=== PATIENT | female | born 1955 | race Hispanic/Latino ===

== ENCOUNTER 2020-08-17 11:25 | Inpatient (IN) | payer MEDICARE ==
[~2020-08-17] VITALS: Ht 160 cm; Wt 79.9 kg
[2020-08-17] VITALS (8 sets, daily range): BP systolic 126–143; BP diastolic 58–78
[2020-08-17] MEDS ORDERED: SODIUM CHLORIDE 0.9% 250ML 250 ML IV ONE (12:00)
[2020-08-17] MEDS ORDERED: FUROSEMIDE INJ 10 MG/ML 2 ML VIAL IV PRN (12:00)
[2020-08-17 12:05] LABS: BASOPHILS # (AUTO) 0.1 (0.0-0.1); BASOPHILS % 0.5 % (0.0-1.0); EOSINOPHILS # (AUTO) 0.3 (0.0-0.4); EOSINOPHILS % 3.6 % (0.0-6.0); LYMPHOCYTES # (AUTO) 1.3 (1.0-3.2); LYMPHOCYTES % 14.1 % (18.0-39.1); MEAN CORPUSCULAR HGB CONC 25.2 g/dL (31-35); MEAN CORPUSCULAR VOLUME 63.5 fL (81-99); MONOCYTES # (AUTO) 0.9 (0.2-0.8); MONOCYTES % 9.6 % (4.4-11.3); NEUTROPHILS # (AUTO) 6.8 (2.1-6.9); NEUTROPHILS % 71.8 % (38.7-80.0); PLATELET COUNT 229 x10e3/uL (140-360); RED BLOOD COUNT 3.56 x10e6/uL (3.6-5.1); RED CELL DISTRIBUTION WIDTH 21.2 % (11.7-14.4)
[2020-08-17 12:07] LABS: HEMATOCRIT 22.6 % (34.2-44.1); HEMOGLOBIN 5.7 g/dL (12.0-16.0)
[2020-08-17 12:16] LABS: INR 1.04; PARTIAL THROMBOPLASTIN TIME 26.4 seconds (23.8-35.5); PROTHROMBIN TIME 14.3 seconds (11.9-14.5)
[2020-08-17 12:26] LABS: ALANINE AMINOTRANSFERASE 6 IU/L (0-55); ALBUMIN 3.2 g/dL (3.5-5.0); ALBUMIN/GLOBULIN RATIO 0.7 (0.8-2.0); ALKALINE PHOSPHATASE 134 IU/L (40-150); ANION GAP 10.2 mmol/L (8-16); BLOOD UREA NITROGEN 10 mg/dL (7-26); BUN/CREATININE RATIO 15 (6-25); CALCIUM 8.1 mg/dL (8.4-10.2); CARBON DIOXIDE 25 mmol/L (22-29); CHLORIDE 107 mmol/L (98-107); CREATINE KINASE 53 IU/L (29-168); CREATININE, SERUM 0.68 mg/dL (0.57-1.11); EST GLOMERULAR FILTRATION RATE > 60 ML/MIN (60-); GLUCOSE 100 mg/dL (74-118); POTASSIUM 4.2 mmol/L (3.5-5.1); SODIUM 138 mmol/L (136-145)
[2020-08-17 14:24] LABS: % IRON SATURATION 2 % (15-50); IRON 11 ug/dL (50-170); TOTAL IRON BINDING CAPACITY 494 ug/dL (261-478); TRANSFERRIN 353 mg/dL (180-382)
[2020-08-17] MEDS: SODIUM CHLORIDE 0.9% 1000ML 1,000 ML IV SCH (17:57)
[2020-08-17] MEDS ORDERED: LEXAPRO10 MG PO (18:22)
[2020-08-17] MEDS ORDERED: SYNTHROID100 MCG PO (18:22)
[2020-08-17] MEDS ORDERED: CRESTOR10 MG PO (18:22)
[2020-08-17] MEDS ORDERED: AMOXICILLIN500 MG PO (18:22)
[2020-08-17] MEDS ORDERED: PROTONIX20 MG PO (18:22)
[2020-08-17] MEDS: AMOXICILLIN 250 MG CAP PO SCH (23:15)
[2020-08-18] VITALS (10 sets, daily range): BP systolic 120–149; BP diastolic 51–94
[2020-08-18] MEDS: SODIUM CHLORIDE 0.9% 1000ML 1,000 ML IV SCH ×2 (03:00→16:33)
[2020-08-18] MEDS: LEVOTHYROXINE SODIUM 100 MCG TAB PO SCH (04:55)
[2020-08-18] MEDS: AMOXICILLIN 250 MG CAP PO SCH ×3 (04:55→21:24)
[2020-08-18 06:24] LABS: ALBUMIN/GLOBULIN RATIO 0.7 (0.8-2.0); ALKALINE PHOSPHATASE 123 IU/L (40-150); ANION GAP 10.9 mmol/L (8-16); BLOOD UREA NITROGEN 9 mg/dL (7-26); BUN/CREATININE RATIO 14 (6-25); CALCIUM 7.9 mg/dL (8.4-10.2); CARBON DIOXIDE 22 mmol/L (22-29); CHLORIDE 109 mmol/L (98-107); CREATININE, SERUM 0.63 mg/dL (0.57-1.11); EST GLOMERULAR FILTRATION RATE > 60 ML/MIN (60-); GLUCOSE 86 mg/dL (74-118); POTASSIUM 3.9 mmol/L (3.5-5.1); SODIUM 138 mmol/L (136-145)
[2020-08-18 06:25] LABS: ALANINE AMINOTRANSFERASE < 6 IU/L (0-55)
[2020-08-18 06:50] LABS: BASOPHILS # (AUTO) 0.1 (0.0-0.1); BASOPHILS % 0.6 % (0.0-1.0); EOSINOPHILS # (AUTO) 0.4 (0.0-0.4); EOSINOPHILS % 4.5 % (0.0-6.0); HEMATOCRIT 27.5 % (34.2-44.1); HEMOGLOBIN 7.5 g/dL (12.0-16.0); LYMPHOCYTES % 13.1 % (18.0-39.1); MEAN CORPUSCULAR HEMOGLOBIN 18.6 pg (28-32); MEAN CORPUSCULAR HGB CONC 27.3 g/dL (31-35); MEAN CORPUSCULAR VOLUME 68.2 fL (81-99); MONOCYTES # (AUTO) 0.6 (0.2-0.8); MONOCYTES % 7.9 % (4.4-11.3); NEUTROPHILS # (AUTO) 5.8 (2.1-6.9); NEUTROPHILS % 73.4 % (38.7-80.0); PLATELET COUNT 191 x10e3/uL (140-360); RED BLOOD COUNT 4.03 x10e6/uL (3.6-5.1); RED CELL DISTRIBUTION WIDTH 23.7 % (11.7-14.4)
[2020-08-18] MEDS: PANTOPRAZOLE SOD 40 MG TABEC PO SCH (07:26)
[2020-08-18 11:34] LABS: HYPOCHROMASIA MODERATE
[2020-08-18 11:35] LABS: ELLIPTOCYTE, RBC SLIGHT; MICROCYTOSIS SLIGHT; PLATELET ESTIMATE ADEQUATE; RBC MORPHOLOGY COMMENT ABNORMAL
[2020-08-18 11:40] LABS: POLYCHROMASIA FEW; SCHISTOCYTES RARE
[2020-08-18 11:43] LABS: OVALOCYTES FEW; PLATELET MORPHOLOGY COMMENT FEW LARGE
[2020-08-18 11:46] LABS: BASOPHILS # (AUTO) 0.1 (0.0-0.1); BASOPHILS % 0.7 % (0.0-1.0); EOSINOPHILS # (AUTO) 0.3 (0.0-0.4); EOSINOPHILS % 4.3 % (0.0-6.0); HEMOGLOBIN 7.9 g/dL (12.0-16.0); LYMPHOCYTES # (AUTO) 1.1 (1.0-3.2); LYMPHOCYTES % 14.2 % (18.0-39.1); MEAN CORPUSCULAR HEMOGLOBIN 18.4 pg (28-32); MEAN CORPUSCULAR HGB CONC 27.2 g/dL (31-35); MEAN CORPUSCULAR VOLUME 67.6 fL (81-99); MONOCYTES # (AUTO) 0.6 (0.2-0.8); MONOCYTES % 7.2 % (4.4-11.3); NEUTROPHILS # (AUTO) 5.6 (2.1-6.9); NEUTROPHILS % 73.1 % (38.7-80.0); PLATELET COUNT 199 x10e3/uL (140-360); RED BLOOD COUNT 4.29 x10e6/uL (3.6-5.1); RED CELL DISTRIBUTION WIDTH 23.9 % (11.7-14.4)
[2020-08-18] MEDS: TEMAZEPAM 7.5 MG CAP PO PRN (21:24)
[2020-08-18] MEDS: SIMVASTATIN 20 MG TAB PO SCH (21:24)
[2020-08-19] VITALS (8 sets, daily range): BP systolic 91–133; BP diastolic 35–71
[2020-08-19] MEDS: SODIUM CHLORIDE 0.9% 1000ML 1,000 ML IV SCH ×2 (04:29→21:16)
[2020-08-19 05:21] LABS: BASOPHILS % 0.6 % (0.0-1.0); EOSINOPHILS # (AUTO) 0.5 (0.0-0.4); EOSINOPHILS % 6.5 % (0.0-6.0); HEMATOCRIT 26.5 % (34.2-44.1); HEMOGLOBIN 7.3 g/dL (12.0-16.0); LYMPHOCYTES # (AUTO) 0.9 (1.0-3.2); LYMPHOCYTES % 12.9 % (18.0-39.1); MEAN CORPUSCULAR HEMOGLOBIN 18.9 pg (28-32); MEAN CORPUSCULAR HGB CONC 27.5 g/dL (31-35); MEAN CORPUSCULAR VOLUME 68.5 fL (81-99); MONOCYTES # (AUTO) 0.7 (0.2-0.8); MONOCYTES % 10.3 % (4.4-11.3); NEUTROPHILS # (AUTO) 4.8 (2.1-6.9); NEUTROPHILS % 69.4 % (38.7-80.0); PLATELET COUNT 169 x10e3/uL (140-360); RED BLOOD COUNT 3.87 x10e6/uL (3.6-5.1); RED CELL DISTRIBUTION WIDTH 24.3 % (11.7-14.4)
[2020-08-19 05:42] LABS: ANION GAP 11.9 mmol/L (8-16); BLOOD UREA NITROGEN 6 mg/dL (7-26); BUN/CREATININE RATIO 9 (6-25); CALCIUM 7.8 mg/dL (8.4-10.2); CARBON DIOXIDE 21 mmol/L (22-29); CHLORIDE 111 mmol/L (98-107); CREATININE, SERUM 0.64 mg/dL (0.57-1.11); EST GLOMERULAR FILTRATION RATE > 60 ML/MIN (60-); GLUCOSE 88 mg/dL (74-118); MAGNESIUM 1.9 MG/DL (1.3-2.1); PHOSPHORUS 2.9 MG/DL (2.3-4.7); POTASSIUM 3.9 mmol/L (3.5-5.1); SODIUM 140 mmol/L (136-145)
[2020-08-19 07:16] LABS: PLATELET MORPHOLOGY COMMENT FEW LARGE; RBC MORPHOLOGY COMMENT ABNORMAL
[2020-08-19 07:17] LABS: HYPOCHROMASIA MODERATE; MICROCYTOSIS MODE; PLATELET ESTIMATE ADEQUATE; POIKILOCYTOSIS SLIGHT; POLYCHROMASIA FEW
[2020-08-19 07:18] LABS: ANISOCYTOSIS SLIG
[2020-08-19 07:19] LABS: ELLIPTOCYTE, RBC SLIGHT; OVALOCYTES FEW
[2020-08-19 07:21] LABS: STOMATOCYTES SLIG
[2020-08-19 08:18] LABS: SPHEROCYTES RARE
[2020-08-19] MEDS ORDERED: BISACODYL 5 MG TAB EC PO ONE ×2 (09:45→12:00)
[2020-08-19] MEDS: PANTOPRAZOLE SOD 40 MG TABEC PO SCH (09:50)
[2020-08-19] MEDS: IRON SUCROSE 100 MG in SODIUM CHLORIDE 0.9% 100 ML 100 ML IV SCH (09:50)
[2020-08-19] MEDS: LEVOTHYROXINE SODIUM 100 MCG TAB PO SCH (09:50)
[2020-08-19] MEDS: AMOXICILLIN 250 MG CAP PO SCH ×3 (09:50→21:14)
[2020-08-19] MEDS: BUSPIRONE HCL 5 MG TAB PO SCH ×2 (09:50→15:33)
[2020-08-19] MEDS ORDERED: ONDANSETRON HCL INJ 2MG/ML 2ML 2 MG/ML VIAL IV PRN (12:00)
[2020-08-19] MEDS ORDERED: LIDOCAINE HCL 2% LOCAL INJ 5 ML SDV VIAL INJ ONE (14:07)
[2020-08-19] MEDS ORDERED: PROPOFOL IV EMULSION 10 MG/ML 20 ML VIAL ONE (14:07)
[2020-08-19] MEDS ORDERED: PEG (High)/E-LYTE SOLN 4,000 ML BTL PO ONE (17:00)
[2020-08-19] MEDS: SIMVASTATIN 20 MG TAB PO SCH (21:14)
[2020-08-20] VITALS: BP 123/56
[2020-08-20] MEDS: TEMAZEPAM 7.5 MG CAP PO PRN (00:30)
[2020-08-20 04:00] VITALS: BP 88/60
[2020-08-20 05:03] LABS: BASOPHILS % 0.4 % (0.0-1.0); EOSINOPHILS # (AUTO) 0.5 (0.0-0.4); EOSINOPHILS % 5.6 % (0.0-6.0); HEMATOCRIT 26.9 % (34.2-44.1); HEMOGLOBIN 7.3 g/dL (12.0-16.0); LYMPHOCYTES # (AUTO) 0.9 (1.0-3.2); LYMPHOCYTES % 10.8 % (18.0-39.1); MEAN CORPUSCULAR HEMOGLOBIN 18.4 pg (28-32); MEAN CORPUSCULAR HGB CONC 27.1 g/dL (31-35); MEAN CORPUSCULAR VOLUME 67.8 fL (81-99); MONOCYTES # (AUTO) 0.7 (0.2-0.8); NEUTROPHILS # (AUTO) 6.4 (2.1-6.9); NEUTROPHILS % 74.8 % (38.7-80.0); PLATELET COUNT 184 x10e3/uL (140-360); RED BLOOD COUNT 3.97 x10e6/uL (3.6-5.1); RED CELL DISTRIBUTION WIDTH 25.1 % (11.7-14.4)
[2020-08-20 05:28] LABS: ANION GAP 13.6 mmol/L (8-16); BLOOD UREA NITROGEN < 5 mg/dL (7-26); CARBON DIOXIDE 20 mmol/L (22-29); CHLORIDE 111 mmol/L (98-107); CREATININE, SERUM 0.66 mg/dL (0.57-1.11); EST GLOMERULAR FILTRATION RATE > 60 ML/MIN (60-); GLUCOSE 87 mg/dL (74-118); POTASSIUM 3.6 mmol/L (3.5-5.1); SODIUM 141 mmol/L (136-145)
[2020-08-20 05:29] LABS: BUN/CREATININE RATIO 8 (6-25)
[2020-08-20 06:47] LABS: MICROCYTOSIS SLIGHT
[2020-08-20 06:48] LABS: ANISOCYTOSIS MARKED; HYPOCHROMASIA SLIGHT; POLYCHROMASIA FEW
[2020-08-20 06:49] LABS: ELLIPTOCYTE, RBC SLIGHT; PLATELET ESTIMATE ADEQUATE; PLATELET MORPHOLOGY COMMENT FEW LARGE; RBC MORPHOLOGY COMMENT ABNORMAL
[2020-08-20 06:50] LABS: GIANT PLATELETS FEW
[2020-08-20 09:17] VITALS: BP 100/48
[2020-08-20 09:23] VITALS: BP 100/48
[2020-08-20] MEDS: BUSPIRONE HCL 5 MG TAB PO SCH (10:49)
[2020-08-20] MEDS: PANTOPRAZOLE SOD 40 MG TABEC PO SCH (10:49)
[2020-08-20] MEDS: AMOXICILLIN 250 MG CAP PO SCH (10:49)
[2020-08-20] MEDS: LEVOTHYROXINE SODIUM 100 MCG TAB PO SCH (10:49)
[2020-08-20 11:21] VITALS: BP 96/60
[2020-08-20] MEDS: IRON SUCROSE 100 MG in SODIUM CHLORIDE 0.9% 100 ML 100 ML IV SCH (11:55)
[2020-08-20] MEDS: SODIUM CHLORIDE 0.9% 1000ML 1,000 ML IV SCH (11:55)
[2020-08-20] MEDS ORDERED: PROPOFOL IV EMULSION 10 MG/ML 20 ML VIAL ONE (13:19)
[2020-08-20] MEDS ORDERED: LIDOCAINE HCL 2% LOCAL INJ 5 ML SDV VIAL INJ ONE (13:19)
[2020-08-20 15:17] VITALS: BP 113/55
[2020-08-20] MEDS ORDERED: FERROUS SULFATE 325 MG TAB PO ONE (15:30)
[2020-08-21] MEDS ORDERED: ASCORBIC ACID 500 MG TAB PO ONE (09:00)
== END 2020-08-20 17:48 | disposition home or self-care (01) | DRG 378 ==
LOC: ER 11:44 → ERHOLD 13:31 → MED/SURG2 17:17
PROVIDERS: ADMIT Internal Medicine; ATTEND Internal Medicine
PROC: 30233N1 Transfusion of Nonautologous Red Blood Cells into Peripheral Vein, Percutaneous Approach (ICD-10-PCS; 2020-08-17)
PROC: 0DB78ZX Excision of Stomach, Pylorus, Via Natural or Artificial Opening Endoscopic, Diagnostic (ICD-10-PCS; 2020-08-19)
PROC: 0DB98ZX Excision of Duodenum, Via Natural or Artificial Opening Endoscopic, Diagnostic (ICD-10-PCS; principal; 2020-08-19 07:30)
PROC: 0DBH8ZX Excision of Cecum, Via Natural or Artificial Opening Endoscopic, Diagnostic (ICD-10-PCS; 2020-08-20)
DX: K31.811 Angiodysplasia of stomach and duodenum with bleeding (principal); D62 Acute posthemorrhagic anemia; K44.0 Diaphragmatic hernia with obstruction, without gangrene; D64.9 Anemia, unspecified; E78.5 Hyperlipidemia, unspecified; D50.9 Iron deficiency anemia, unspecified; F41.9 Anxiety disorder, unspecified; F32.9 Major depressive disorder, single episode, unspecified; E03.9 Hypothyroidism, unspecified; G47.00 Insomnia, unspecified; K64.0 First degree hemorrhoids; K63.9 Disease of intestine, unspecified; Z20.822 Contact with and (suspected) exposure to COVID-19; K22.2 Esophageal obstruction
CPT/HCPCS: 36415; 43239; 45384; 71045; 80048; 80053; 82270; 82550; 82553; 83540; 83735; 84100; 84466; 84484; 85025; 85610; 85730; 86850; 86900; 86920; 88305; 88312; 93005; 99284; J1756; J2001; J2405; J7030; J7050; P9016; U0002

== ENCOUNTER 2022-02-09 23:50 | Observation (INO) | payer MEDICARE, OTHER ==
[~2022-02-09] VITALS: Ht 160 cm; Wt 83.5 kg
[~2022-02-09 23:50] MED LIST: AMOXICILLIN500 MG PO; CRESTOR10 MG PO; LEXAPRO10 MG PO; PROTONIX20 MG PO; SYNTHROID100 MCG PO
[2022-02-10] MEDS ORDERED: CEFTRIAXONE 1 GM VIAL IV STA (00:01)
[2022-02-10] MEDS ORDERED: ACETAMINOPHEN 325 MG TAB PO ONE (00:15)
[2022-02-10] MEDS ORDERED: SODIUM CHLORIDE 0.9% 1000ML 2,520 ML IV SCH (00:15)
[2022-02-10 00:17] LABS: BASOPHILS % 0.1 % (0.0-1.0); HEMATOCRIT 23.9 % (34.2-44.1); LYMPHOCYTES # (AUTO) 1.2 (1.0-3.2); LYMPHOCYTES % 12.9 % (18.0-39.1); MEAN CORPUSCULAR HEMOGLOBIN 15.2 pg (28-32); MEAN CORPUSCULAR HGB CONC 25.5 g/dL (31-35); MEAN CORPUSCULAR VOLUME 59.5 fL (81-99); MONOCYTES # (AUTO) 0.8 (0.2-0.8); MONOCYTES % 8.8 % (4.4-11.3); NEUTROPHILS % 77.5 % (38.7-80.0); PLATELET COUNT 182 x10e3/uL (140-360); RED BLOOD COUNT 4.02 x10e6/uL (3.6-5.1); RED CELL DISTRIBUTION WIDTH 22.1 % (11.7-14.4)
[2022-02-10 00:18] LABS: HEMOGLOBIN 6.1 g/dL (12.0-16.0)
[2022-02-10] MEDS: SODIUM CHLORIDE 0.9% 250ML 250 ML IV ONE ×2 (00:18→02:11)
[2022-02-10 00:26] LABS: INR 0.97; PROTHROMBIN TIME 13.8 seconds (11.9-14.5)
[2022-02-10 00:27] LABS: PARTIAL THROMBOPLASTIN TIME 28.7 seconds (23.8-35.5)
[2022-02-10 00:35] LABS: ALBUMIN 3.1 g/dL (3.5-5.0); ALBUMIN/GLOBULIN RATIO 0.7 (0.8-2.0); ANION GAP 12.8 mmol/L (8-16); CALCIUM 7.7 mg/dL (8.4-10.2); CREATININE, SERUM 0.82 mg/dL (0.57-1.11); POTASSIUM 3.8 mmol/L (3.5-5.1)
[2022-02-10 00:39] LABS: CLARITY,URINE SL CLOUDY (CLEAR); COLOR,URINE YELLOW (YELLOW); KETONES,URINE TRACE (NEGATIVE); LEUKOCYTE ESTERASE ,URINE TRACE (NEGATIVE); NITRITE,URINE POSITIVE (NEGATIVE); PROTEIN,URINE DIPSTICK TRACE (NEGATIVE); URINE UROBILINOGEN 1 mg/dL (0.2 - 1)
[2022-02-10 00:49] LABS: BACTERIA,URINE MANY /HPF; EPITHELIAL CELLS,URINE FEW /LPF; RBC,URINE 0-5 /HPF (0-5)
[2022-02-10] MEDS ORDERED: SODIUM CHLORIDE 0.9% 1000ML 1,000 ML IV ONE (01:00)
[2022-02-10] MEDS ORDERED: TARON FORTE CA1 EACH PO (01:57)
[2022-02-10 23:56] VITALS: BP 142/56
[2022-02-11] VITALS (7 sets, daily range): BP systolic 106–142; BP diastolic 46–73
[2022-02-11] MEDS ORDERED: SODIUM CHLORIDE 0.9% 250ML 250 ML ONE (04:52)
[2022-02-11] MEDS ORDERED: LEVOTHYROXINE SODIUM 100 MCG TAB PO SCH (06:00)
[2022-02-11 06:58] LABS: BASOPHILS % 0.1 % (0.0-1.0); EOSINOPHILS % 0.1 % (0.0-6.0); HEMATOCRIT 27.7 % (34.2-44.1); HEMOGLOBIN 7.9 g/dL (12.0-16.0); LYMPHOCYTES # (AUTO) 0.9 (1.0-3.2); LYMPHOCYTES % 9.7 % (18.0-39.1); MEAN CORPUSCULAR HGB CONC 28.5 g/dL (31-35); MONOCYTES # (AUTO) 0.7 (0.2-0.8); NEUTROPHILS # (AUTO) 7.8 (2.1-6.9); NEUTROPHILS % 82.6 % (38.7-80.0); PLATELET COUNT 148 x10e3/uL (140-360); RED CELL DISTRIBUTION WIDTH 26.3 % (11.7-14.4)
[2022-02-11 07:07] LABS: ANION GAP 11.5 mmol/L (8-16); CALCIUM 7.7 mg/dL (8.4-10.2); CREATININE, SERUM 0.7 mg/dL (0.57-1.11); POTASSIUM 3.5 mmol/L (3.5-5.1)
[2022-02-11] MEDS ORDERED: PANTOPRAZOLE SOD 40 MG TABEC PO SCH (09:00)
[2022-02-11] MEDS ORDERED: SIMVASTATIN 20 MG TAB PO SCH (09:00)
[2022-02-11] MEDS ORDERED: IRON-VITAMIN-MINERAL CAPSULE PO SCH (09:30)
[2022-02-11 09:47] LABS: ANISOCYTOSIS MODERATE; PLATELET ESTIMATE SLIGHTLY DECREASED; PLATELET MORPHOLOGY COMMENT NORMAL; RBC MORPHOLOGY COMMENT ABNORMAL
[2022-02-11 09:48] LABS: ELLIPTOCYTE, RBC SLIGHT; HYPOCHROMASIA MODERATE; MICROCYTOSIS MODERATE; OVALOCYTES MODERATE; POLYCHROMASIA FEW
[2022-02-11] MEDS ORDERED: NIRMATRELVIR/RITONAVIR 1 EACH TABLET PO SCH (14:00)
== END 2022-02-11 17:41 | disposition home or self-care (01) ==
LOC: ER 23:58 → ERHOLD 02-10 01:12 → MED/SURG2 02-10 18:49
PROVIDERS: ADMIT Internal Medicine; ATTEND Internal Medicine
DX: A41.9 Sepsis, unspecified organism (principal); U07.1 COVID-19; E03.9 Hypothyroidism, unspecified; E78.5 Hyperlipidemia, unspecified; D50.0 Iron deficiency anemia secondary to blood loss (chronic); E87.1 Hypo-osmolality and hyponatremia; F32.A Depression, unspecified; K21.9 Gastro-esophageal reflux disease without esophagitis
CPT/HCPCS: 36415 ×2; 71046; 80048; 80053; 81001; 83605; 85025 ×2; 85610; 85730; 86850; 86900; 86920; 87040; 93005; 99251; 99284; G0378 ×2; J0696 ×2; J7030; J7050 ×2; P9016; S0164; U0002

== ENCOUNTER 2022-09-22 15:06 | Inpatient (IN) | payer MEDICARE ==
[~2022-09-22] VITALS: Ht 160 cm; Wt 83.5 kg
[~2022-09-22 15:06] MED LIST changes: +TARON FORTE CA1 EACH PO
[2022-09-22 16:06] LABS: BASOPHILS # (AUTO) 0.1 (0.0-0.1); BASOPHILS % 0.5 % (0.0-1.0); EOSINOPHILS # (AUTO) 0.3 (0.0-0.4); EOSINOPHILS % 3.3 % (0.0-6.0); LYMPHOCYTES # (AUTO) 0.8 (1.0-3.2); MEAN CORPUSCULAR HEMOGLOBIN 14.4 pg (28-32); MEAN CORPUSCULAR HGB CONC 23.7 g/dL (31-35); MONOCYTES # (AUTO) 0.8 (0.2-0.8); MONOCYTES % 7.7 % (4.4-11.3); NEUTROPHILS # (AUTO) 8.1 (2.1-6.9); NEUTROPHILS % 80.1 % (38.7-80.0); PLATELET COUNT 227 x10e3/uL (140-360); RED BLOOD COUNT 3.74 x10e6/uL (3.6-5.1); RED CELL DISTRIBUTION WIDTH 21.7 % (11.7-14.4)
[2022-09-22 16:09] LABS: HEMATOCRIT 22.8 % (34.2-44.1); HEMOGLOBIN 5.4 g/dL (12.0-16.0)
[2022-09-22 16:18] LABS: ALBUMIN 3.3 g/dL (3.5-5.0); ALBUMIN/GLOBULIN RATIO 0.7 (0.8-2.0); CALCIUM 8.3 mg/dL (8.4-10.2); CREATININE, SERUM 0.72 mg/dL (0.57-1.11)
[2022-09-22] MEDS ORDERED: ONDANSETRON HCL INJ 2MG/ML 2ML 2 MG/ML VIAL IV PRN (16:30)
[2022-09-22 20:30] VITALS: BP 120/90
[2022-09-22 23:00] VITALS: BP 120/40
[2022-09-22 23:13] VITALS: BP 120/40
[2022-09-23] VITALS (7 sets, daily range): BP systolic 109–136; BP diastolic 47–61
[2022-09-23] MEDS: SODIUM CHLORIDE 0.9% 1000ML 1,000 ML IV SCH ×3 (01:10→17:00)
[2022-09-23] MEDS ORDERED: ACETAMINOPHEN 325 MG TAB PO PRN (01:45)
[2022-09-23 06:08] LABS: BASOPHILS % 0.4 % (0.0-1.0); EOSINOPHILS # (AUTO) 0.3 (0.0-0.4); EOSINOPHILS % 2.8 % (0.0-6.0); LYMPHOCYTES # (AUTO) 0.9 (1.0-3.2); LYMPHOCYTES % 9.5 % (18.0-39.1); MEAN CORPUSCULAR HEMOGLOBIN 14.5 pg (28-32); MEAN CORPUSCULAR HGB CONC 24.1 g/dL (31-35); MEAN CORPUSCULAR VOLUME 60.2 fL (81-99); MONOCYTES # (AUTO) 0.6 (0.2-0.8); MONOCYTES % 6.3 % (4.4-11.3); NEUTROPHILS # (AUTO) 7.9 (2.1-6.9); NEUTROPHILS % 80.5 % (38.7-80.0); PLATELET COUNT 238 x10e3/uL (140-360); RED BLOOD COUNT 3.37 x10e6/uL (3.6-5.1); RED CELL DISTRIBUTION WIDTH 21.5 % (11.7-14.4)
[2022-09-23 06:10] LABS: HEMATOCRIT 20.3 % (34.2-44.1); HEMOGLOBIN 4.9 g/dL (12.0-16.0)
[2022-09-23 06:21] LABS: ALBUMIN/GLOBULIN RATIO 0.8 (0.8-2.0); ALKALINE PHOSPHATASE 115 IU/L (40-150); ANION GAP 9.6 mmol/L (8-16); BLOOD UREA NITROGEN 10 mg/dL (7-26); BUN/CREATININE RATIO 16 (6-25); CARBON DIOXIDE 22 mmol/L (22-29); CHLORIDE 109 mmol/L (98-107); CREATININE, SERUM 0.64 mg/dL (0.57-1.11); GLUCOSE 94 mg/dL (74-118); POTASSIUM 3.6 mmol/L (3.5-5.1); SODIUM 137 mmol/L (136-145)
[2022-09-23 06:24] LABS: ALANINE AMINOTRANSFERASE < 6 IU/L (0-55)
[2022-09-23 07:41] LABS: HYPOCHROMASIA MARKED; MICROCYTOSIS MARKED; PLATELET ESTIMATE ADEQUATE; PLATELET MORPHOLOGY COMMENT FEW LARGE; RBC MORPHOLOGY COMMENT ABNORMAL
[2022-09-23 07:42] LABS: OVALOCYTES FEW; TARGET CELLS FEW; TEAR DROP CELLS FEW
[2022-09-23 07:45] LABS: ANISOCYTOSIS MODERATE; ELLIPTOCYTE, RBC SLIGHT
[2022-09-23] MEDS ORDERED: SODIUM CHLORIDE 0.9% 250ML 250 ML ONE ×2 (17:36→23:07)
[2022-09-23] MEDS: MELATONIN 3 MG TAB PO SCH (23:47)
[2022-09-23 23:54] LABS: % IRON SATURATION 2 % (15-50); IRON 12 ug/dL (50-170); TOTAL IRON BINDING CAPACITY 486 ug/dL (261-478); TRANSFERRIN 347 mg/dL (180-382)
[2022-09-24] VITALS: BP 135/61
[2022-09-24 00:39] VITALS: BP 128/61
[2022-09-24] MEDS ORDERED: SODIUM CHLORIDE 0.9% 250ML 250 ML ONE (02:44)
[2022-09-24 04:00] VITALS: BP 135/55
[2022-09-24 08:41] VITALS: BP 135/68
[2022-09-24 08:49] LABS: BASOPHILS # (AUTO) 0.1 (0.0-0.1); BASOPHILS % 0.5 % (0.0-1.0); EOSINOPHILS # (AUTO) 0.3 (0.0-0.4); HEMATOCRIT 31.8 % (34.2-44.1); HEMOGLOBIN 9.2 g/dL (12.0-16.0); LYMPHOCYTES # (AUTO) 0.8 (1.0-3.2); LYMPHOCYTES % 7.4 % (18.0-39.1); MEAN CORPUSCULAR HEMOGLOBIN 19.9 pg (28-32); MEAN CORPUSCULAR HGB CONC 28.9 g/dL (31-35); MEAN CORPUSCULAR VOLUME 68.7 fL (81-99); MONOCYTES # (AUTO) 0.6 (0.2-0.8); MONOCYTES % 6.2 % (4.4-11.3); NEUTROPHILS # (AUTO) 8.3 (2.1-6.9); NEUTROPHILS % 82.4 % (38.7-80.0); PLATELET COUNT 206 x10e3/uL (140-360); RED BLOOD COUNT 4.63 x10e6/uL (3.6-5.1); RED CELL DISTRIBUTION WIDTH 28.8 % (11.7-14.4)
[2022-09-24] MEDS: IRON SUCROSE 100 MG in SODIUM CHLORIDE 0.9% 100 ML IV SCH (09:00)
[2022-09-24] MEDS ORDERED: SIMVASTATIN 40 MG TAB PO SCH (09:00)
[2022-09-24] MEDS: FOLIC ACID 1 MG TAB PO SCH (09:11)
[2022-09-24] MEDS: PANTOPRAZOLE SOD 40 MG TABEC PO SCH (09:11)
[2022-09-24 09:13] LABS: ANION GAP 9.7 mmol/L (8-16); CALCIUM 8.3 mg/dL (8.4-10.2); CREATININE, SERUM 0.67 mg/dL (0.57-1.11); POTASSIUM 3.7 mmol/L (3.5-5.1)
[2022-09-24 11:12] LABS: EOSINOPHILS % (MANUAL) 2 % (0-7); LYMPHOCYTES % (MANUAL) 6 % (19-48); MONOCYTES % (MANUAL) 5 % (3.4-9.0); NEUTROPHILS % (MANUAL) 87 % (40-74)
[2022-09-24 11:14] LABS: ANISOCYTOSIS MARKED; HYPOCHROMASIA MARKED; MICROCYTOSIS MARKED; OVALOCYTES FEW; PLATELET ESTIMATE ADEQUATE; PLATELET MORPHOLOGY COMMENT FEW LARGE; RBC MORPHOLOGY COMMENT ABNORMAL
[2022-09-24] MEDS ORDERED: HEPARIN SOD (PORCINE) 1000 UNIT/ML SDV ONE (11:30)
[2022-09-24 15:58] VITALS: BP 116/57
[2022-09-24 20:00] VITALS: BP 137/61
[2022-09-24] MEDS ORDERED: BISACODYL 5 MG TAB EC PO ONE ×2 (20:00→21:00)
[2022-09-25] VITALS: BP 131/66
[2022-09-25] MEDS: MELATONIN 3 MG TAB PO SCH (02:11)
[2022-09-25 04:00] VITALS: BP 132/75
[2022-09-25] MEDS ORDERED: LEVOTHYROXINE SODIUM 100 MCG TAB PO SCH (06:00)
[2022-09-25 08:32] VITALS: BP 136/62
[2022-09-25] MEDS: IRON SUCROSE 100 MG in SODIUM CHLORIDE 0.9% 100 ML IV SCH (08:55)
[2022-09-25] MEDS: FOLIC ACID 1 MG TAB PO SCH (08:55)
[2022-09-25] MEDS: PANTOPRAZOLE SOD 40 MG TABEC PO SCH (08:55)
== END 2022-09-25 10:57 | disposition home or self-care (01) | DRG 812 ==
LOC: ER 15:13 → ERHOLD 16:37 → MED/SURG3 21:09 → OBSVTOIN 09-24 11:00
PROVIDERS: ADMIT Internal Medicine; ATTEND Internal Medicine
PROC: 30233N1 Transfusion of Nonautologous Red Blood Cells into Peripheral Vein, Percutaneous Approach (ICD-10-PCS; principal; 2022-09-23)
DX: D50.9 Iron deficiency anemia, unspecified (principal); E78.5 Hyperlipidemia, unspecified; K21.9 Gastro-esophageal reflux disease without esophagitis; G40.909 Epilepsy, unspecified, not intractable, without status epilepticus; G43.909 Migraine, unspecified, not intractable, without status migrainosus; J45.909 Unspecified asthma, uncomplicated
CPT/HCPCS: 36415; 78278; 80048; 80053; 82270; 82378; 82607; 82728; 82746; 83540; 84466; 85025; 85045; 86850; 86870; 86880; 86900; 86905; 86920; 86922; 93005; 99001; 99284; A9512; G0378; J1644; J1756; J7030; J7050; P9016